=== PATIENT | male | born 1945 | race Caucasian/White ===

== ENCOUNTER 2018-03-24 17:42 | Emergency (ER) | payer MEDICARE, OTHER ==
[~2018-03-24] VITALS: Ht 177.8 cm; Wt 113.4 kg
[2018-03-24] MEDS ORDERED: LISINOPRIL5 MG PO (17:57)
[2018-03-24] MEDS ORDERED: ASPIR 8181 MG PO (17:57)
[2018-03-24] MEDS ORDERED: ZETIA10 MG PO (17:57)
[2018-03-24] MEDS ORDERED: NAPROSYN500 MG PO (17:58)
[2018-03-24] MEDS ORDERED: PRILOSEC 20 MG20 MG PO (17:58)
[2018-03-24] MEDS ORDERED: LEVAQUIN 750 M750 MG PO (17:59)
[2018-03-24] MEDS ORDERED: HYDROCODONE-AP1 EAC6 PO (18:25)
[2018-03-24] MEDS ORDERED: TORADOL 10 MG T10 MG PO ×2 (18:25→18:32)
[2018-03-24 19:05] VITALS: BP 136/84
== END 2018-03-24 19:06 | disposition home or self-care (01) ==
LOC: M.ERS 17:42
DX: M25.561 Pain in right knee (principal); R60.0 Localized edema; K21.9 Gastro-esophageal reflux disease without esophagitis; E03.9 Hypothyroidism, unspecified; I10 Essential (primary) hypertension